=== PATIENT | male | born 2000 | race African-American/Black ===

== ENCOUNTER 2019-04-22 21:30 | Emergency (ER) | payer OTHER ==
[2019-04-22 21:49] VITALS: BP 119/90
--- NOTE | 2019-04-22 21:56 | UC ---
Complaint Female HPI - HPI Summary HPI Summary: The patient is a 18-year-old male whose partner was recently treated with biotics for chlamydia. He states he has had some slight burning on urination but denies any discharge. He does not desire any HIV testing. He does not desire any other STD testing. Fever or chills. He is generally pretty healthy. - History Of Current Complaint Chief Complaint: [facility] Stated Complaint: PERSONAL ISSUE Hx Obtained From: Patient Onset/Duration: Gradual Onset Timing: Intermittent Severity Currently: None Pain Intensity: 0 Pain Scale Used: 0-10 Numeric Character: Burning Aggravating Factor(s): Urination Associated Signs And Symptoms: Negative: Fever, Back Pain, Vaginal Bleeding/ Discharge, Vaginal Discharge, Nausea, Vomiting(# Of Episodes =), Genital Swelling, Genital Blisters, Retained Foregin Body (Specify) - Allergies/Home Medications Allergies/Adverse Reactions: Allergies Allergy/AdvReac Type Severity Reaction Status Date / Time No Known Allergies Allergy Verified 04/22/19 21:49 Home Medications: Home Medications NK [No Home Medications Reported] 04/22/19 [History Confirmed 04/22/19] PMH/Surg Hx/FS Hx/Imm Hx Previously Healthy: Yes - Surgical History Surgical History: None - Family History Known Family History: Positive: Hypertension - Social History Alcohol Use: Weekly Substance Use Type: Marijuana Smoking Status (MU): Never Smoked Tobacco Review of Systems All Other Systems Reviewed And Are Negative: Yes Constitutional: Positive: Negative Skin: Positive: Negative Eyes: Positive: Negative ENT: Positive: Negative Respiratory: Positive: Negative Cardiovascular: Positive: Negative Gastrointestinal: Positive: Negative Genitourinary: Positive: Dysuria Motor: Positive: Negative Neurovascular: Positive: Negative Musculoskeletal: Positive: Negative Neurological: Positive: Negative Psychological: Positive: Negative Physical Exam Triage Information Reviewed: Yes Appearance: Well-Appearing, No Pain Distress, Well-Nourished Vital Signs: Initial Vital Signs Temp 99.3 F 04/22/19 21:45 Pulse 61 04/22/19 21:45 Resp 18 04/22/19 21:45 BP 119/90 04/22/19 21:45 Pulse Ox 98 04/22/19 21:45 Vital Signs Reviewed: Yes Eyes: Positive: Conjunctiva Clear ENT: Positive: Hearing grossly normal, Uvula midline. Negative: Nasal congestion, Nasal drainage, Trismus, Muffled voice, Dental tenderness Dental Exam: Normal Neck: Positive: Supple, Nontender, No Lymphadenopathy Respiratory: Positive: Lungs clear, Normal breath sounds, No respiratory distress, No accessory muscle use Cardiovascular: Positive: RRR, No Murmur Abdomen Description: Positive: Nontender, Soft. Negative: CVA Tenderness (R), CVA Tenderness (L) Bowel Sounds: Positive: Present Musculoskeletal: Positive: ROM Intact, No Edema Neurological: Positive: Alert Psychological Exam: Normal Skin Exam: Normal Complaint Female Dx - Differential Dx/Diagnosis Provider Diagnosis: Urethritis, Exposure to chlamydia, Elevated BP without diagnosis of hypertension Discharge ED - Sign-Out/Discharge Documenting (check all that apply): Patient Departure All imaging exams completed and their final reports reviewed: No Studies - Discharge Plan Condition: Stable Disposition: HOME Patient Education Materials: Nonspecific Urethritis in Men (ED) Referrals: Delta Patel MD [Primary Care Provider] - 2 Weeks (BP recheck in 2-12 weeks ) - Billing Disposition and Condition Condition: STABLE Disposition: Home
[2019-04-22] MEDS ORDERED: Azithromycin TAB* 250 MG PO ONE (22:01)
[2019-04-22] MEDS ORDERED: cefTRIAXone VIAL(*) 250 MG VIAL IM ONE (22:01)
[2019-04-22] MEDS ORDERED: Lidocaine 1% MPF ** 5 ML VIAL IM ONE (22:01)
[2019-04-24 15:06] LABS: Chlamydia trachomatis NAA Negative (Negative); Neisseria gonorrhoeae (GC) NAA Negative (Negative)
== END 2019-04-22 22:33 | disposition home or self-care (01) ==
LOC: UCEAST 21:30
DX: A56.01 Chlamydial cystitis and urethritis (principal); R03.0 Elevated blood-pressure reading, without diagnosis of hypertension; Z20.2 Contact with and (suspected) exposure to infections with a predominantly sexual mode of transmission
CPT/HCPCS: 87491; 87591; 96372; 99212; A9270-GY; G0463; J0696